=== PATIENT | male | born 1960 | race Caucasian/White ===

== ENCOUNTER → 2022-01-23 | Outpatient (CLI) | payer BC, OTHER | LOC: M SLEEP 20:00 | PROVIDERS: ATTEND Physician Assistant | DX: G47.33 Obstructive sleep apnea (adult) (pediatric) (principal) ==

== ENCOUNTER → 2023-11-21 | Outpatient (CLI) | payer BC, OTHER | LOC: M SOG 08:00 | PROVIDERS: ATTEND Physician Assistant | DX: Z53.9 Procedure and treatment not carried out, unspecified reason (principal) ==

== ENCOUNTER 2024-01-09 06:06 | Day surgery (SDC) | payer BC ==
[~2024-01-09] VITALS: Ht 180.3 cm; Wt 97.1 kg
[~2024-01-09 06:06] MED LIST: AMLO1TAB24 PO; D32000CA PO; DULO1CAP6 PO; IBUP-1114 PO; LISI20TA33 PO; PRAV40TA2 PO; ROPI0.5T33 PO; UNRESOLVED CLARIFICATION ENTRY XX SCH
[2024-01-09] MEDS ORDERED: LIDOCAINE W/EPINEPHRINE 1% 20ML VIAL As Ordered ONE (06:18)
[2024-01-09] MEDS ORDERED: SODIUM BICARBONATE 8.4% INJ 50MEQ 50ML VIAL As Ordered ONE (06:18)
[2024-01-09] MEDS ORDERED: LIDOCAINE W/EPINEPHRINE 1% 20ML VIAL XX ONE (06:45)
[2024-01-09] MEDS ORDERED: SODIUM BICARBONATE 8.4% INJ 50MEQ 50ML VIAL XX ONE (06:45)
[2024-01-09] MEDS ORDERED: BACITRACIN OINTMENT 30GM TUBE As Ordered ONE (07:38)
[2024-01-09 07:55] VITALS: BP 124/59; TEMP 97.9; O2SAT 95
== END 2024-01-09 08:03 | disposition home or self-care (01) ==
LOC: M SDC 06:06
PROVIDERS: ATTEND Orthopaedic Surgery Hand Surgery
DX: M65.4 Radial styloid tenosynovitis [de Quervain] (principal); F17.220 Nicotine dependence, chewing tobacco, uncomplicated; Z79.899 Other long term (current) drug therapy
CPT/HCPCS: 25000; J0665

== ENCOUNTER → 2025-03-02 | Outpatient (CLI) | payer BC, OTHER ==
[~2025-03-02] MED LIST changes: -PRAV40TA2 PO; +PRAV40TA85 PO; -UNRESOLVED CLARIFICATION ENTRY XX SCH
== END ==
LOC: M EKG 09:28
PROVIDERS: ATTEND Internal Medicine Cardiovascular Disease
DX: I48.0 Paroxysmal atrial fibrillation (principal)